=== PATIENT | female | born 1945 ===

== ENCOUNTER 2018-06-09 21:36 | Emergency (ER) | payer OTHER ==
[~2018-06-09] VITALS: Ht 157.5 cm; Wt 53.1 kg
[2018-06-09] MEDS ORDERED: COREG CR10 MG (22:29)
[2018-06-09] MEDS ORDERED: PLAVIX75 MG (22:30)
[2018-06-09] MEDS ORDERED: HYDRALAZINE HCL25 MG (22:30)
[2018-06-09] MEDS ORDERED: COZAAR25 MG (22:30)
[2018-06-09] MEDS ORDERED: LIPITOR40 MG (22:31)
[2018-06-09] MEDS ORDERED: ADULT ASPIRIN81 MG (22:31)
[2018-06-09] MEDS ORDERED: VITAMIN D5000 UNIT (22:32)
[2018-06-09] MEDS ORDERED: CLARITIN10 M1 (22:40)
[2018-06-09] MEDS ORDERED: FLONASE16 GM (22:40)
[2018-06-09] MEDS ORDERED: ROBITUSSIN15 MG (22:40)
== END 2018-06-09 23:38 | disposition home or self-care (01) ==
LOC: ER 21:36
DX: R05 Cough (principal)